=== PATIENT | male | born 1940 | race Caucasian/White ===

== ENCOUNTER 2017-10-18 04:04 | Inpatient (IN) | payer MEDICARE, OTHER ==
[~2017-10-18] VITALS: Ht 165.1 cm; Wt 90.0 kg
[2017-10-18] VITALS (18 sets, daily range): BP systolic 97–125; BP diastolic 35–67
[~2017-10-18 04:04] MED LIST: ALLO100T PO; ATOR20TA PO; CARV-50 PO; CHOL10002 PO; ESCI10TA54 PO; INDSR75C PO; IRBE150T51 PO; METF10002 PO; ONDA8TAB9 PO; PANT-47 PO; POTA10CA44 PO
[2017-10-18] MEDS ORDERED: nitroGLYCERIN-Tridil 50MG/D5W 250 ML IV SCH (04:10)
[2017-10-18 04:29] LABS: BASOPHILS # (AUTO) 0.1 X10'3 (0-0.2); BASOPHILS % (AUTO) 0.6 % (0-1); EOSINOPHILS # (AUTO) 0.4 X10'3 (0-0.9); EOSINOPHILS % (AUTO) 3.3 % (0-6); HEMATOCRIT 38.4 % (42.0-52.0); HEMOGLOBIN 12.8 g/dl (14.0-17.9); LYMPHOCYTES # (AUTO) 1.5 X10'3 (1.1-4.8); LYMPHOCYTES % (AUTO) 11.3 % (21-51); MEAN CORPUSCULAR HEMOGLOBIN 31.7 PG (27.0-31.0); MEAN CORPUSCULAR HGB CONC 33.4 % (33.0-36.5); MEAN CORPUSCULAR VOLUME 94.9 FL (78-98); MEAN PLATELET VOLUME 7.5 FL (7.4-10.4); MONOCYTES % (AUTO) 7.8 % (2-12); NEUTROPHILS # (AUTO) 10.1 X10'3 (1.8-7.7); PLATELET COUNT 253 X10'3 (140-440); RED BLOOD COUNT 4.05 X10'6 (4.70-6.10); RED CELL DISTRIBUTION WIDTH 14.2 % (11.5-14.5); WHITE BLOOD COUNT 13.1 X10'3 (4.5-11.0)
[2017-10-18 04:40] LABS: ABG BASE EXCESS -2.3 mmol/L (-2.0-3.0); ABG HCO3 20.9 mmol/L (22.0-26.0); ABG OXYGEN SATURATION 96.5 % (95-98); ABG PCO2 (T) 32.3 mmHg (35.0-48.0); ABG PH (T) 7.432 (7.350-7.450); ABG PO2 (T) 92.9 mmHg (83-108); FCOHb 0.4 % (0.5-1.5); FO2Hb 96.1 % (94-100); MINUTE VOLUME 25 L/min; PATIENT TEMPERATURE 37.7; RESPIRATORY RATE (OBSERVED) 23 b/min; TOTAL HEMOGLOBIN 12.5 G/dl (14.0-18.0)
[2017-10-18 04:41] LABS: PARTIAL THROMBOPLASTIN TIME 28 SECONDS (22-32); PROTHROMBIN TIME 10.4 SECONDS (9.0-12.0)
[2017-10-18 04:49] LABS: ALANINE AMINOTRANSFERASE 37 U/L (12-78); ALBUMIN 3.5 G/DL (3.4-5.0); ALBUMIN/GLOBULIN RATIO 0.9 (1.1-1.5); ALKALINE PHOSPHATASE 69 IU/L (46-116); ANION GAP 11 (8-16); ASPARTATE AMINO TRANSFERASE 25 U/L (10-37); BILIRUBIN,TOTAL 0.8 MG/DL (0.1-1.0); BLOOD UREA NITROGEN 35 MG/DL (7-18); CALCIUM 8.6 MG/DL (8.5-10.1); CHLORIDE 103 MMOL/L (99-107); CREATININE 1.67 MG/DL (0.60-1.10); GLUCOSE 185 MG/DL (70-104); POTASSIUM 4.2 MMOL/L (3.5-5.1); SODIUM 138 MMOL/L (135-145); TOTAL CARBON DIOXIDE 24.3 MMOL/L (24-32); TOTAL PROTEIN 7.4 G/DL (6.4-8.2); eGFR 40 ML/MIN
[2017-10-18] MEDS ORDERED: furosemide 10 MG/1 ML 10ml inj IV ONE (05:10)
[2017-10-18] MEDS ORDERED: dextrose 50%-water 50ml dispensing syringe IV PRN ×2 (05:50)
[2017-10-18] MEDS ORDERED: ondansetron/PF 4mg/2ml inj IV PRN (05:50)
[2017-10-18] MEDS ORDERED: magnesium hydroxide 30ml (MOM) UD suspension PO PRN (05:50)
[2017-10-18] MEDS ORDERED: acetaminophen 325mg tablet PO PRN ×2 (05:50)
[2017-10-18] MEDS ORDERED: mag hydrox/Alum hydrox/simeth 30ml oral suspension PO PRN (05:50)
[2017-10-18] MEDS ORDERED: glucagon, human recombinant 1mg kit SUBCUT PRN (05:50)
[2017-10-18] MEDS ORDERED: MESSAGE TO PHARMACY PO ONE (05:50)
[2017-10-18] MEDS ORDERED: insulin Lispro (HumaLOG) vial - multi-dose SQ SCH (05:50)
[2017-10-18] MEDS ORDERED: dextrose ORAL solution 15 GM/59 ML bottle PO PRN ×2 (05:50)
[2017-10-18] MEDS ORDERED: LINA5TAB4 PO (05:56)
[2017-10-18] MEDS ORDERED: CLOP75TA35 PO (05:56)
[2017-10-18] MEDS ORDERED: FURO-150 PO (05:56)
[2017-10-18] MEDS ORDERED: AMIO200T57 PO (05:56)
[2017-10-18] MEDS ORDERED: LEVO75TA PO (05:56)
[2017-10-18] MEDS ORDERED: ROSU40TA PO (05:56)
[2017-10-18] MEDS ORDERED: OMEP20CA10 PO (05:56)
[2017-10-18] MEDS ORDERED: INDO50CA PO (06:16)
[2017-10-18] MEDS: atorvastatin 20mg tablet PO SCH (07:44)
[2017-10-18] MEDS: potassium Cl 20 mEq SR tablet PO SCH (07:45)
[2017-10-18] MEDS: levoTHYROXINE 75mcg tablet PO SCH (07:45)
[2017-10-18] MEDS: carVEDilol 12.5mg tablet PO SCH ×2 (07:46→19:38)
[2017-10-18] MEDS: allopurinol 100mg tablet PO SCH (07:46)
[2017-10-18] MEDS: clopidogrel 75mg tablet PO SCH (07:46)
[2017-10-18] MEDS: pantoprazole 40mg Tablet.DR PO SCH (07:47)
[2017-10-18] MEDS: furosemide 10 MG/1 ML 10ml inj IV SCH ×2 (07:48→19:38)
[2017-10-18] MEDS ORDERED: enoxaparin 40mg/0.4ml syringe SUBCUT SCH (08:00)
[2017-10-18] MEDS ORDERED: indomethacin 25mg capsule PO SCH (08:00)
[2017-10-18] MEDS ORDERED: nitroGLYCERIN 0.4mg SUBLingual tab SL ONE (10:00)
[2017-10-18] MEDS: amiodarone 100mg tablet PO SCH (10:06)
[2017-10-18] MEDS ORDERED: acetylcysteine 200 MG/ml 4ml vial PO ONE (16:20)
[2017-10-18] MEDS ORDERED: SODIUM CHLORIDE 0.45% IV SCH (16:25)
[2017-10-18] MEDS ORDERED: SODIUM BICARBONATE IV SCH (16:25)
[2017-10-18] MEDS: DOBUTamine-DoBUTrex 500mg/D5W 250 ML IV SCH ×2 (17:35→20:48)
[2017-10-18] MEDS: sodium bicarbonate (8.4%) inj. 150 MEQ in sodium chloride 0.45% 1,000 ML IV SCH (19:30)
[2017-10-18] MEDS: acetylcysteine 200mg/ml 30ml oral solution (vial) MC SCH (20:00)
[2017-10-18] MEDS: Insulin Detemir pen SQ SCH (21:00)
[2017-10-19] VITALS (18 sets, daily range): BP systolic 95–121; BP diastolic 38–74
[2017-10-19 06:00] LABS: BASOPHILS # (AUTO) 0.1 X10'3 (0-0.2); BASOPHILS % (AUTO) 0.6 % (0-1); EOSINOPHILS # (AUTO) 0.4 X10'3 (0-0.9); EOSINOPHILS % (AUTO) 3.5 % (0-6); HEMATOCRIT 35.6 % (42.0-52.0); HEMOGLOBIN 12.1 g/dl (14.0-17.9); LYMPHOCYTES # (AUTO) 1.3 X10'3 (1.1-4.8); LYMPHOCYTES % (AUTO) 12.6 % (21-51); MEAN CORPUSCULAR VOLUME 94.4 FL (78-98); MEAN PLATELET VOLUME 7.7 FL (7.4-10.4); MONOCYTES # (AUTO) 0.9 X10'3 (0-0.9); MONOCYTES % (AUTO) 8.8 % (2-12); NEUTROPHILS # (AUTO) 7.5 X10'3 (1.8-7.7); NEUTROPHILS % (AUTO) 74.5 % (42-75); PLATELET COUNT 247 X10'3 (140-440); RED BLOOD COUNT 3.77 X10'6 (4.70-6.10); RED CELL DISTRIBUTION WIDTH 14.3 % (11.5-14.5); WHITE BLOOD COUNT 10.1 X10'3 (4.5-11.0)
[2017-10-19 06:11] LABS: ALBUMIN 3.3 G/DL (3.4-5.0); ANION GAP 8 (8-16); BLOOD UREA NITROGEN 35 MG/DL (7-18); BUN/CREATININE RATIO 21.5 (5.4-32.0); CHLORIDE 103 MMOL/L (99-107); CREATININE 1.63 MG/DL (0.60-1.10); GLUCOSE 140 MG/DL (70-104); POTASSIUM 3.7 MMOL/L (3.5-5.1); SODIUM 141 MMOL/L (135-145); TOTAL CARBON DIOXIDE 30.2 MMOL/L (24-32); eGFR 41 ML/MIN
[2017-10-19] MEDS: amiodarone 100mg tablet PO SCH (09:08)
[2017-10-19] MEDS: levoTHYROXINE 75mcg tablet PO SCH (09:08)
[2017-10-19] MEDS: pantoprazole 40mg Tablet.DR PO SCH (09:08)
[2017-10-19] MEDS: allopurinol 100mg tablet PO SCH (09:08)
[2017-10-19] MEDS: carVEDilol 12.5mg tablet PO SCH ×2 (09:08→20:00)
[2017-10-19] MEDS: clopidogrel 75mg tablet PO SCH (09:08)
[2017-10-19] MEDS: furosemide 10 MG/1 ML 10ml inj IV SCH ×2 (09:09→20:00)
[2017-10-19] MEDS: atorvastatin 20mg tablet PO SCH (09:09)
[2017-10-19] MEDS: acetylcysteine 200mg/ml 30ml oral solution (vial) MC SCH ×2 (09:09→20:48)
[2017-10-19] MEDS: potassium Cl 20 mEq SR tablet PO SCH (09:09)
[2017-10-19] MEDS ORDERED: nitroGLYCERIN-Tridil 50MG/D5W 250 ML IV ONE (10:47)
[2017-10-19] MEDS ORDERED: heparin 1,000unit/ml 10ml vial 10 ML ONE (10:48)
[2017-10-19] MEDS ORDERED: iohexol 350MG/ML 100ml bottle IV ONE (10:48)
[2017-10-19] MEDS ORDERED: LIDOcaine 1%/PF (10mg/ml) 5ml vial ONE (10:48)
[2017-10-19] MEDS ORDERED: iohexol 350 MG/ML 50ML vial IV ONE (10:48)
[2017-10-19] MEDS ORDERED: midazolam 2 mg/2 ml injection ONE (10:48)
[2017-10-19] MEDS ORDERED: fentaNYL/PF 50MCG/1 ML 2ML syringe ONE (10:48)
[2017-10-19 13:30] LABS: ISTAT HGB ART 11.9 g/dl (14.0-18.0); ISTAT Hct ART 35 %PCV (42-52); ISTAT O2 SATURATION ARTERIAL 95 % (95-98); ISTAT SOURCE ART
[2017-10-19] MEDS: DOBUTamine-DoBUTrex 500mg/D5W 250 ML IV SCH (15:22)
[2017-10-19] MEDS: sodium bicarbonate (8.4%) inj. 150 MEQ in sodium chloride 0.45% 1,000 ML IV SCH (16:36)
[2017-10-19] MEDS: sacubitril/valsartan 24mg-26mg tablet PO SCH (20:00)
[2017-10-19] MEDS: Insulin Detemir pen SQ SCH (20:49)
[2017-10-20] VITALS (15 sets, daily range): BP systolic 83–134; BP diastolic 36–65
[2017-10-20 06:07] LABS: BASOPHILS % (AUTO) 0.2 % (0-1); EOSINOPHILS # (AUTO) 0.2 X10'3 (0-0.9); EOSINOPHILS % (AUTO) 2.4 % (0-6); HEMATOCRIT 34.6 % (42.0-52.0); HEMOGLOBIN 11.8 g/dl (14.0-17.9); LYMPHOCYTES % (AUTO) 10.5 % (21-51); MEAN CORPUSCULAR VOLUME 94.1 FL (78-98); MEAN PLATELET VOLUME 7.6 FL (7.4-10.4); MONOCYTES # (AUTO) 0.8 X10'3 (0-0.9); MONOCYTES % (AUTO) 8.8 % (2-12); NEUTROPHILS # (AUTO) 7.4 X10'3 (1.8-7.7); NEUTROPHILS % (AUTO) 78.1 % (42-75); PLATELET COUNT 238 X10'3 (140-440); RED BLOOD COUNT 3.68 X10'6 (4.70-6.10); RED CELL DISTRIBUTION WIDTH 14.4 % (11.5-14.5); WHITE BLOOD COUNT 9.5 X10'3 (4.5-11.0)
[2017-10-20 06:29] LABS: ALBUMIN 3.1 G/DL (3.4-5.0); ANION GAP 9 (8-16); BLOOD UREA NITROGEN 25 MG/DL (7-18); BUN/CREATININE RATIO 17.1 (5.4-32.0); CALCIUM 8.3 MG/DL (8.5-10.1); CHLORIDE 102 MMOL/L (99-107); CREATININE 1.46 MG/DL (0.60-1.10); GLUCOSE 125 MG/DL (70-104); POTASSIUM 3.2 MMOL/L (3.5-5.1); SODIUM 139 MMOL/L (135-145); TOTAL CARBON DIOXIDE 28.5 MMOL/L (24-32); eGFR 47 ML/MIN
[2017-10-20] MEDS: pantoprazole 40mg Tablet.DR PO SCH (07:14)
[2017-10-20] MEDS: allopurinol 100mg tablet PO SCH (07:15)
[2017-10-20] MEDS: clopidogrel 75mg tablet PO SCH (07:16)
[2017-10-20] MEDS: potassium Cl 20 mEq SR tablet PO SCH (07:16)
[2017-10-20] MEDS: levoTHYROXINE 75mcg tablet PO SCH (07:16)
[2017-10-20] MEDS: sacubitril/valsartan 24mg-26mg tablet PO SCH ×2 (07:17→20:57)
[2017-10-20] MEDS: atorvastatin 20mg tablet PO SCH (07:17)
[2017-10-20] MEDS: furosemide 10 MG/1 ML 10ml inj IV SCH ×2 (07:20→20:57)
[2017-10-20] MEDS: amiodarone 100mg tablet PO SCH (07:38)
[2017-10-20] MEDS: carVEDilol 12.5mg tablet PO SCH ×2 (07:38→22:15)
[2017-10-20] MEDS: acetylcysteine 200mg/ml 30ml oral solution (vial) MC SCH ×2 (10:21→20:57)
[2017-10-20] MEDS: DOBUTamine-DoBUTrex 500mg/D5W 250 ML IV SCH (19:07)
[2017-10-20] MEDS: sodium bicarbonate (8.4%) inj. 150 MEQ in sodium chloride 0.45% 1,000 ML IV SCH (19:09)
[2017-10-20] MEDS: Insulin Detemir pen SQ SCH (21:00)
[2017-10-20] MEDS ORDERED: potassium Cl 40MEQ/NS 500ml 500 ML IV PRN ×2 (22:25)
[2017-10-20] MEDS ORDERED: potassium Cl 20 mEq SR tablet PO PRN ×2 (22:25)
[2017-10-21] VITALS: BP 102/48
[2017-10-21 02:00] VITALS: BP_SYST 103; BP_SYST 109; BP_DIAS 41; BP_DIAS 42
[2017-10-21 04:00] VITALS: BP 120/49
[2017-10-21 05:46] LABS: ISTAT Hct MIX 31 %PCV (42-52); ISTAT O2 SATURATION MIX VENOUS 62 % (60-80); ISTAT SOURCE MIX
[2017-10-21 05:59] LABS: BASOPHILS % (AUTO) 0.3 % (0-1); EOSINOPHILS # (AUTO) 0.3 X10'3 (0-0.9); EOSINOPHILS % (AUTO) 2.9 % (0-6); HEMATOCRIT 35.9 % (42.0-52.0); HEMOGLOBIN 12.1 g/dl (14.0-17.9); LYMPHOCYTES # (AUTO) 1.3 X10'3 (1.1-4.8); LYMPHOCYTES % (AUTO) 12.1 % (21-51); MEAN CORPUSCULAR HEMOGLOBIN 31.8 PG (27.0-31.0); MEAN CORPUSCULAR HGB CONC 33.8 % (33.0-36.5); MEAN CORPUSCULAR VOLUME 94.1 FL (78-98); MEAN PLATELET VOLUME 7.5 FL (7.4-10.4); MONOCYTES # (AUTO) 1.2 X10'3 (0-0.9); NEUTROPHILS # (AUTO) 7.9 X10'3 (1.8-7.7); NEUTROPHILS % (AUTO) 73.7 % (42-75); PLATELET COUNT 225 X10'3 (140-440); RED BLOOD COUNT 3.81 X10'6 (4.70-6.10); RED CELL DISTRIBUTION WIDTH 14.5 % (11.5-14.5); WHITE BLOOD COUNT 10.7 X10'3 (4.5-11.0)
[2017-10-21 06:45] LABS: ALBUMIN 2.8 G/DL (3.4-5.0); ANION GAP 8 (8-16); BLOOD UREA NITROGEN 23 MG/DL (7-18); BUN/CREATININE RATIO 17.3 (5.4-32.0); CALCIUM 8.3 MG/DL (8.5-10.1); CHLORIDE 101 MMOL/L (99-107); CREATININE 1.33 MG/DL (0.60-1.10); GLUCOSE 128 MG/DL (70-104); POTASSIUM 3.3 MMOL/L (3.5-5.1); SODIUM 137 MMOL/L (135-145); TOTAL CARBON DIOXIDE 28.5 MMOL/L (24-32); eGFR 52 ML/MIN
[2017-10-21 07:00] VITALS: BP 112/47
[2017-10-21] MEDS: atorvastatin 20mg tablet PO SCH (07:17)
[2017-10-21] MEDS: levoTHYROXINE 75mcg tablet PO SCH (07:18)
[2017-10-21] MEDS: clopidogrel 75mg tablet PO SCH (07:18)
[2017-10-21] MEDS: pantoprazole 40mg Tablet.DR PO SCH (07:18)
[2017-10-21] MEDS: sacubitril/valsartan 24mg-26mg tablet PO SCH (07:19)
[2017-10-21] MEDS: amiodarone 100mg tablet PO SCH (07:19)
[2017-10-21] MEDS: potassium Cl 20 mEq SR tablet PO SCH (07:19)
[2017-10-21] MEDS: allopurinol 100mg tablet PO SCH (07:20)
[2017-10-21] MEDS: acetylcysteine 200mg/ml 30ml oral solution (vial) MC SCH (07:20)
[2017-10-21] MEDS: furosemide 10 MG/1 ML 10ml inj IV SCH (07:20)
[2017-10-21 11:00] VITALS: BP 106/66
[2017-10-21] MEDS ORDERED: FURO-150 PO (11:52)
[2017-10-21] MEDS ORDERED: SPIR25TA3 PO (11:52)
[2017-10-21] MEDS ORDERED: SACU1TAB PO (11:52)
[2017-10-21] MEDS ORDERED: AMOX-580 PO (11:52)
[2017-10-21 15:00] VITALS: BP 111/51
[2017-10-22] MEDS ORDERED: spironolactone 25 MG tablet PO SCH (08:30)
== END 2017-10-21 16:20 | disposition home or self-care (01) | DRG 286 ==
LOC: ER 04:04 → ED HOLD 05:48 → PCU 3S 07:00
PROVIDERS: ADMIT Internal Medicine; ATTEND Family Medicine
PROC: 5A09357 Assistance with Respiratory Ventilation, Less than 24 Consecutive Hours, Continuous Positive Airway Pressure (ICD-10-PCS; 2017-10-18)
PROC: 4A023N8 Measurement of Cardiac Sampling and Pressure, Bilateral, Percutaneous Approach (ICD-10-PCS; principal; 2017-10-19)
PROC: B2111ZZ Fluoroscopy of Multiple Coronary Arteries using Low Osmolar Contrast (ICD-10-PCS; 2017-10-19)
PROC: B2151ZZ Fluoroscopy of Left Heart using Low Osmolar Contrast (ICD-10-PCS; 2017-10-19)
DX: I13.0 Hypertensive heart and chronic kidney disease with heart failure and stage 1 through stage 4 chronic kidney disease, or unspecified chronic kidney disease (principal); I50.23 Acute on chronic systolic (congestive) heart failure; J96.01 Acute respiratory failure with hypoxia; J18.9 Pneumonia, unspecified organism; N17.9 Acute kidney failure, unspecified; I24.9 Acute ischemic heart disease, unspecified; I42.0 Dilated cardiomyopathy; E11.22 Type 2 diabetes mellitus with diabetic chronic kidney disease; N18.3 Chronic kidney disease, stage 3 (moderate); I25.10 Atherosclerotic heart disease of native coronary artery without angina pectoris; M19.90 Unspecified osteoarthritis, unspecified site; E66.9 Obesity, unspecified; M10.9 Gout, unspecified; I48.0 Paroxysmal atrial fibrillation; E78.5 Hyperlipidemia, unspecified; I25.2 Old myocardial infarction; Z95.5 Presence of coronary angioplasty implant and graft; Z79.84 Long term (current) use of oral hypoglycemic drugs; Z79.899 Other long term (current) drug therapy; Z86.74 Personal history of sudden cardiac arrest; Z87.891 Personal history of nicotine dependence; Z82.49 Family history of ischemic heart disease and other diseases of the circulatory system; Z82.61 Family history of arthritis; Z84.89 Family history of other specified conditions; Z68.33 Body mass index [BMI] 33.0-33.9, adult
CPT/HCPCS: 36415; 36600; 71045; 80048; 80053; 82803; 82948; 83735; 83880; 84484; 85014; 85018; 85025; 85610; 85730; 87070; 87077; 87186; 93005; 93460; 94660; 94760; 96365; 96375; 99152; 99153; 99285; A4620; A6257; A6258; C1760; C1769; C1894; J1250; J1644; J1650; J1940; J2001; J2250; J3010; J3490; J7030; Q9967

== ENCOUNTER 2018-05-24 01:32 | Inpatient (IN) | payer MEDICARE, OTHER ==
[~2018-05-24] VITALS: Ht 165.1 cm; Wt 90.0 kg
[~2018-05-24 01:32] MED LIST changes: +AMIO200T40 PO; -ATOR20TA PO; +CLOP75TA35 PO; -ESCI10TA54 PO; -INDSR75C PO; -IRBE150T51 PO; +LEVO75TA PO; +LINA5TAB4 PO; -METF10002 PO; +OMEP20CA10 PO; -ONDA8TAB9 PO; -PANT-47 PO; +ROSU40TA PO; +SACU1TAB PO; +SPIR25TA5 PO
[2018-05-24] MEDS ORDERED: furosemide 10 MG/1 ML 10ml inj IV ONE (01:45)
[2018-05-24 02:08] LABS: PARTIAL THROMBOPLASTIN TIME 27 SECONDS (22-32); PROTHROMBIN TIME 10.3 SECONDS (9.0-12.0)
[2018-05-24 02:14] LABS: ALANINE AMINOTRANSFERASE 23 U/L (12-78); ALBUMIN 3.8 G/DL (3.4-5.0); ALKALINE PHOSPHATASE 76 IU/L (46-116); ANION GAP 9 (8-16); ASPARTATE AMINO TRANSFERASE 29 U/L (10-37); BILIRUBIN,TOTAL 0.9 MG/DL (0.1-1.0); BLOOD UREA NITROGEN 33 MG/DL (7-18); BUN/CREATININE RATIO 21.4 (5.4-32.0); CALCIUM 8.8 MG/DL (8.5-10.1); CHLORIDE 102 MMOL/L (99-107); CREATININE 1.54 MG/DL (0.60-1.10); GLUCOSE 173 MG/DL (70-104); POTASSIUM 4.3 MMOL/L (3.5-5.1); SODIUM 136 MMOL/L (135-145); TOTAL CARBON DIOXIDE 24.8 MMOL/L (24-32); TOTAL PROTEIN 7.7 G/DL (6.4-8.2); eGFR 44 ML/MIN
[2018-05-24 02:16] LABS: BASOPHILS # (AUTO) 0.1 X10'3 (0-0.2); BASOPHILS % (AUTO) 0.5 % (0-1); EOSINOPHILS # (AUTO) 0.3 X10'3 (0-0.9); EOSINOPHILS % (AUTO) 2.5 % (0-6); HEMATOCRIT 40.8 % (42.0-52.0); HEMOGLOBIN 13.8 g/dl (14.0-17.9); LYMPHOCYTES # (AUTO) 2.2 X10'3 (1.1-4.8); LYMPHOCYTES % (AUTO) 16.5 % (21-51); MEAN CORPUSCULAR HEMOGLOBIN 32.1 PG (27.0-31.0); MEAN CORPUSCULAR HGB CONC 33.7 % (33.0-36.5); MEAN CORPUSCULAR VOLUME 95.2 FL (78-98); MEAN PLATELET VOLUME 8.4 FL (7.4-10.4); MONOCYTES % (AUTO) 7.2 % (2-12); NEUTROPHILS # (AUTO) 9.8 X10'3 (1.8-7.7); NEUTROPHILS % (AUTO) 73.3 % (42-75); PLATELET COUNT 221 X10'3 (140-440); RED BLOOD COUNT 4.29 X10'6 (4.70-6.10); RED CELL DISTRIBUTION WIDTH 15.3 % (11.5-14.5); WHITE BLOOD COUNT 13.4 X10'3 (4.5-11.0)
[2018-05-24 02:54] LABS: D-DIMER 0.73 MG/L FEU (0-0.50)
[2018-05-24 04:41] LABS: ABG BASE EXCESS -2.7 mmol/L (-2.0-3.0); ABG HCO3 20.6 mmol/L (22.0-26.0); ABG OXYGEN SATURATION 95.1 % (95-98); ABG PCO2 (T) 31.1 mmHg (35.0-48.0); ABG PH (T) 7.437 (7.350-7.450); ABG PO2 (T) 72.3 mmHg (83-108); ALLEN'S TEST Positive; FCOHb 1.1 % (0.5-1.5); FLOW 2 L/min; FO2Hb 94.1 % (94-100); PATIENT TEMPERATURE 36.5; TOTAL HEMOGLOBIN 13.3 G/dl (14.0-18.0)
[2018-05-24] MEDS ORDERED: ALLOPURINOL 300 MG TABLET (05:12)
[2018-05-24] MEDS ORDERED: ondansetron/PF 4mg/2ml inj IV PRN (05:20)
[2018-05-24] MEDS ORDERED: acetaminophen 325mg tablet PO PRN (05:20)
[2018-05-24] MEDS ORDERED: mag hydrox/Alum hydrox/simeth 30ml oral suspension PO PRN (05:20)
[2018-05-24] MEDS ORDERED: magnesium hydroxide 30ml (MOM) UD suspension PO PRN (05:20)
[2018-05-24] MEDS ORDERED: FUROSEMIDE 20 MG TABLET PO (05:23)
[2018-05-24] MEDS ORDERED: POTASSIUM CL ER 20 MEQ TABLET PO (05:23)
[2018-05-24 05:50] VITALS: BP 111/57
[2018-05-24 06:00] VITALS: BP 106/50
[2018-05-24] MEDS ORDERED: furosemide 10 MG/1 ML 10ml inj IV SCH (08:00)
[2018-05-24] MEDS: carVEDilol 12.5mg tablet PO SCH ×2 (08:00→19:40)
[2018-05-24] MEDS: amiodarone 200mg tablet PO SCH (08:00)
[2018-05-24] MEDS: linagliptin 5mg tablet PO SCH (08:00)
[2018-05-24] MEDS: heparin, porcine 5000 units/ml vial SQ SCH ×2 (09:32→19:39)
[2018-05-24] MEDS: allopurinol 300 MG tablet PO SCH (09:35)
[2018-05-24] MEDS: atorvastatin 20mg tablet PO SCH (09:35)
[2018-05-24] MEDS: clopidogrel 75mg tablet PO SCH (09:35)
[2018-05-24] MEDS: spironolactone 25 MG tablet PO SCH (09:35)
[2018-05-24] MEDS: levoTHYROXINE 75mcg tablet PO SCH (09:35)
[2018-05-24] MEDS: sacubitril/valsartan 24mg-26mg tablet PO SCH ×2 (09:35→19:40)
[2018-05-24] MEDS: vitamin D (cholecalciferol) 1,000 unit tablet PO SCH (09:35)
[2018-05-24] MEDS: pantoprazole 40mg Tablet.DR PO SCH ×2 (09:36→19:39)
[2018-05-24 11:00] VITALS: BP 102/50
[2018-05-24 15:00] VITALS: BP 108/52
[2018-05-24 18:00] VITALS: BP 105/57
[2018-05-24] MEDS: furosemide 10 MG/1 ML 10ml inj IV SCH (19:39)
[2018-05-24 22:00] VITALS: BP 104/50
[2018-05-25 02:00] VITALS: BP 90/44
[2018-05-25 05:26] LABS: BASOPHILS % (AUTO) 0.5 % (0-1); EOSINOPHILS # (AUTO) 0.2 X10'3 (0-0.9); HEMATOCRIT 35.5 % (42.0-52.0); LYMPHOCYTES # (AUTO) 1.7 X10'3 (1.1-4.8); LYMPHOCYTES % (AUTO) 24.9 % (21-51); MEAN CORPUSCULAR HGB CONC 33.7 % (33.0-36.5); MEAN PLATELET VOLUME 8.3 FL (7.4-10.4); MONOCYTES # (AUTO) 0.7 X10'3 (0-0.9); NEUTROPHILS # (AUTO) 4.2 X10'3 (1.8-7.7); NEUTROPHILS % (AUTO) 61.6 % (42-75); PLATELET COUNT 167 X10'3 (140-440); RED BLOOD COUNT 3.74 X10'6 (4.70-6.10); RED CELL DISTRIBUTION WIDTH 15.4 % (11.5-14.5); WHITE BLOOD COUNT 6.9 X10'3 (4.5-11.0)
[2018-05-25 05:55] LABS: ALANINE AMINOTRANSFERASE 16 U/L (12-78); ALBUMIN/GLOBULIN RATIO 0.9 (1.1-1.5); ALKALINE PHOSPHATASE 54 IU/L (46-116); ANION GAP 10 (8-16); ASPARTATE AMINO TRANSFERASE 16 U/L (10-37); BILIRUBIN,TOTAL 1.2 MG/DL (0.1-1.0); BLOOD UREA NITROGEN 33 MG/DL (7-18); BUN/CREATININE RATIO 21.4 (5.4-32.0); CALCIUM 8.4 MG/DL (8.5-10.1); CHLORIDE 102 MMOL/L (99-107); CREATININE 1.54 MG/DL (0.60-1.10); GLUCOSE 124 MG/DL (70-104); POTASSIUM 3.7 MMOL/L (3.5-5.1); SODIUM 136 MMOL/L (135-145); TOTAL CARBON DIOXIDE 24.5 MMOL/L (24-32); TOTAL PROTEIN 6.3 G/DL (6.4-8.2); eGFR 44 ML/MIN
[2018-05-25 06:00] VITALS: BP 104/53
[2018-05-25] MEDS: carVEDilol 12.5mg tablet PO SCH (08:00)
[2018-05-25] MEDS: sacubitril/valsartan 24mg-26mg tablet PO SCH (08:00)
[2018-05-25 09:05] VITALS: BP 114/54
[2018-05-25] MEDS: vitamin D (cholecalciferol) 1,000 unit tablet PO SCH (09:14)
[2018-05-25] MEDS: clopidogrel 75mg tablet PO SCH (09:14)
[2018-05-25] MEDS: spironolactone 25 MG tablet PO SCH (09:14)
[2018-05-25] MEDS: pantoprazole 40mg Tablet.DR PO SCH (09:14)
[2018-05-25] MEDS: allopurinol 300 MG tablet PO SCH (09:14)
[2018-05-25] MEDS: levoTHYROXINE 75mcg tablet PO SCH (09:14)
[2018-05-25] MEDS: atorvastatin 20mg tablet PO SCH (09:14)
[2018-05-25] MEDS: amiodarone 200mg tablet PO SCH (09:14)
[2018-05-25] MEDS: heparin, porcine 5000 units/ml vial SQ SCH (09:15)
[2018-05-25] MEDS: furosemide 10 MG/1 ML 10ml inj IV SCH (09:15)
[2018-05-25] MEDS: linagliptin 5mg tablet PO SCH (09:18)
[2018-05-25] MEDS ORDERED: FURO-149 PO (10:01)
[2018-05-25 11:00] VITALS: BP 98/48
== END 2018-05-25 14:34 | disposition home health service (06) | DRG 291 ==
LOC: ER 01:32 → ED HOLD 05:16 → PCU 3S 05:57
PROVIDERS: ADMIT Internal Medicine; ATTEND Internal Medicine
PROC: 5A09357 Assistance with Respiratory Ventilation, Less than 24 Consecutive Hours, Continuous Positive Airway Pressure (ICD-10-PCS; principal; 2018-05-24)
DX: I13.0 Hypertensive heart and chronic kidney disease with heart failure and stage 1 through stage 4 chronic kidney disease, or unspecified chronic kidney disease (principal); I50.23 Acute on chronic systolic (congestive) heart failure; Z68.33 Body mass index [BMI] 33.0-33.9, adult; E66.9 Obesity, unspecified; E78.5 Hyperlipidemia, unspecified; I25.10 Atherosclerotic heart disease of native coronary artery without angina pectoris; I08.3 Combined rheumatic disorders of mitral, aortic and tricuspid valves; I25.5 Ischemic cardiomyopathy; I42.0 Dilated cardiomyopathy; I48.0 Paroxysmal atrial fibrillation; N18.2 Chronic kidney disease, stage 2 (mild); I25.2 Old myocardial infarction; Z79.899 Other long term (current) drug therapy; Z79.02 Long term (current) use of antithrombotics/antiplatelets; Z95.5 Presence of coronary angioplasty implant and graft; Z87.891 Personal history of nicotine dependence; Z82.49 Family history of ischemic heart disease and other diseases of the circulatory system; Z80.9 Family history of malignant neoplasm, unspecified; Z82.5 Family history of asthma and other chronic lower respiratory diseases; Z82.61 Family history of arthritis
CPT/HCPCS: 36415; 36600; 71045; 80053; 82553; 82803; 83605; 83874; 83880; 84443; 84484; 85018; 85025; 85379; 85610; 85730; 87040; 87070; 93005; 93306; 94660; 94760; 99285; J1644; J1940

== ENCOUNTER 2018-10-22 10:01 | Inpatient (IN) | payer MEDICARE, OTHER ==
[2018-10-21 12:40] LABS: BASOPHILS % (AUTO) 0.4 % (0-1); EOSINOPHILS # (AUTO) 0.1 X10'3 (0-0.9); EOSINOPHILS % (AUTO) 1.7 % (0-6); HEMATOCRIT 34.8 % (42.0-52.0); HEMOGLOBIN 11.3 g/dl (14.0-17.9); LYMPHOCYTES # (AUTO) 1.3 X10'3 (1.1-4.8); MEAN CORPUSCULAR HEMOGLOBIN 31.4 PG (27.0-31.0); MEAN CORPUSCULAR HGB CONC 32.6 % (33.0-36.5); MEAN CORPUSCULAR VOLUME 96.3 FL (78-98); MEAN PLATELET VOLUME 8.3 FL (7.4-10.4); MONOCYTES # (AUTO) 0.8 X10'3 (0-0.9); NEUTROPHILS # (AUTO) 6.3 X10'3 (1.8-7.7); NEUTROPHILS % (AUTO) 73.9 % (42-75); PLATELET COUNT 207 X10'3 (140-440); RED BLOOD COUNT 3.61 X10'6 (4.70-6.10); RED CELL DISTRIBUTION WIDTH 16.4 % (11.5-14.5); WHITE BLOOD COUNT 8.5 X10'3 (4.5-11.0)
[2018-10-21 12:43] LABS: ANION GAP 15 (8-16); BLOOD UREA NITROGEN 67 MG/DL (7-18); BUN/CREATININE RATIO 27.6 (5.4-32.0); CALCIUM 9.2 MG/DL (8.5-10.1); CHLORIDE 99 MMOL/L (99-107); CREATININE 2.43 MG/DL (0.60-1.10); GLUCOSE 180 MG/DL (70-104); POTASSIUM 4.2 MMOL/L (3.5-5.1); SODIUM 133 MMOL/L (135-145); TOTAL CARBON DIOXIDE 18.8 MMOL/L (24-32); eGFR 26 ML/MIN
[2018-10-21 12:51] LABS: PROTHROMBIN TIME 11.5 SECONDS (9.0-12.0)
[2018-10-21 12:52] LABS: INR 1.1 INR; PARTIAL THROMBOPLASTIN TIME 30 SECONDS (22-32)
[~2018-10-22] VITALS: Ht 167.6 cm; Wt 92.2 kg
[2018-10-22] VITALS (24 sets, daily range): BP systolic 83–135; BP diastolic 38–62
[~2018-10-22 10:01] MED LIST changes: +FURO-150 PO; +LEVO50TA PO; -LEVO75TA PO; -POTA10CA44 PO; +POTASSIUM CL ER 20 MEQ TABLET PO
[2018-10-22] MEDS ORDERED: diphenhydrAMINE 25mg capsule PO PRN (11:15)
[2018-10-22] MEDS ORDERED: LORazepam 0.5 MG tablet PO PRN (11:15)
[2018-10-22] MEDS ORDERED: sod bicarbonate 150mEq in D5W 1,150 ML IV ONE (11:15)
[2018-10-22] MEDS ORDERED: acetylcysteine 200 MG/ml 4ml vial PO PRN (11:20)
[2018-10-22] MEDS ORDERED: CHOL100046 PO (12:21)
[2018-10-22] MEDS ORDERED: ROSU40TA PO (12:23)
[2018-10-22] MEDS ORDERED: SACU1TAB PO (12:24)
[2018-10-22] MEDS ORDERED: CLOP75TA15 PO (12:24)
[2018-10-22] MEDS ORDERED: SPIR25TA5 PO (12:26)
[2018-10-22] MEDS ORDERED: heparin 1,000 UNITS/NS 500ml 500 ML ONE ×2 (12:33→12:34)
[2018-10-22] MEDS ORDERED: iohexol 350MG/ML 100ml bottle IV ONE (12:33)
[2018-10-22] MEDS ORDERED: LIDOcaine 1% (10mg/ml)w/preservative injection 20ml MDV ONE (12:33)
[2018-10-22] MEDS ORDERED: iohexol 350 MG/ML 50ML vial IV ONE (12:33)
[2018-10-22] MEDS ORDERED: DOBUTamine-DoBUTrex 500mg/D5W 250 ML IV SCH (13:00)
[2018-10-22] MEDS ORDERED: midazolam 2 mg/2 ml injection ONE (13:29)
[2018-10-22] MEDS ORDERED: fentaNYL/PF 50MCG/1 ML 2ML syringe ONE (13:29)
[2018-10-22] MEDS ORDERED: heparin 1,000unit/ml 10ml vial 10 ML ONE (13:36)
[2018-10-22] MEDS ORDERED: nitroGLYCERIN-Tridil 50MG/D5W 250 ML IV ONE (13:36)
[2018-10-22] MEDS ORDERED: HYDROcodone/acetaminophen 10/325mg tab PO PRN (18:45)
--- NOTE | 2018-10-22 19:10 | NUR ---
Patient arrived from short stay accompanied by LYLE Galeano. Patient alert, oriented, comfortable, pain-free. Cath site soft, non-tender, clean, dry, and intact. Good extremity pulses and cap refill, warm to touch. Patient on dobutamine 5 mcg/kg/min, and bicarb gtt 88.6ml/hr. Will continue to monitor. Patient placed on telemetry, vitals obtained.
[2018-10-22] MEDS: furosemide 20MG tablet PO SCH (19:26)
[2018-10-22] MEDS: pantoprazole 40mg Tablet.DR PO SCH (19:32)
--- NOTE | 2018-10-22 22:15 | NUR ---
Hypotension Patient's blood pressure 83/38, HR 88 and has been staying low since around 2100. Gave 250 ml normal saline bolus. Patient's lungs clear, no edema noted. Will continue to monitor.
--- NOTE | 2018-10-22 23:30 | NUR ---
Blood pressure improved, BP 100/45, HR 90.
[2018-10-23] VITALS (20 sets, daily range): BP systolic 72–115; BP diastolic 31–61
[2018-10-23] MEDS ORDERED: sod bicarbonate 150mEq in D5W 1,150 ML IV SCH (00:50)
[2018-10-23 06:10] LABS: BASOPHILS % (AUTO) 0.4 % (0-1); EOSINOPHILS # (AUTO) 0.2 X10'3 (0-0.9); EOSINOPHILS % (AUTO) 2.8 % (0-6); HEMATOCRIT 27.3 % (42.0-52.0); LYMPHOCYTES # (AUTO) 0.7 X10'3 (1.1-4.8); LYMPHOCYTES % (AUTO) 8.9 % (21-51); MEAN CORPUSCULAR HEMOGLOBIN 31.5 PG (27.0-31.0); MEAN CORPUSCULAR VOLUME 95.2 FL (78-98); MEAN PLATELET VOLUME 7.6 FL (7.4-10.4); MONOCYTES # (AUTO) 0.7 X10'3 (0-0.9); MONOCYTES % (AUTO) 8.8 % (2-12); NEUTROPHILS % (AUTO) 79.1 % (42-75); PLATELET COUNT 175 X10'3 (140-440); RED BLOOD COUNT 2.87 X10'6 (4.70-6.10); WHITE BLOOD COUNT 7.6 X10'3 (4.5-11.0)
--- NOTE | 2018-10-23 06:18 | NUR ---
Patient in room MED 314. I have received report from LYLE CAN, and had the opportunity to ask questions and assume patient care.
--- NOTE | 2018-10-23 06:28 | NUR ---
Problems reprioritized. Patient report given, questions answered & plan of care reviewed with LYLE Gonzalez.
[2018-10-23 06:35] LABS: ALBUMIN 2.9 G/DL (3.4-5.0); ANION GAP 11 (8-16); BLOOD UREA NITROGEN 49 MG/DL (7-18); BUN/CREATININE RATIO 27.4 (5.4-32.0); CALCIUM 8.3 MG/DL (8.5-10.1); CHLORIDE 100 MMOL/L (99-107); CREATININE 1.79 MG/DL (0.60-1.10); GLUCOSE 142 MG/DL (70-104); POTASSIUM 3.5 MMOL/L (3.5-5.1); SODIUM 135 MMOL/L (135-145); eGFR 37 ML/MIN
[2018-10-23 06:37] LABS: CHOL/HDL RATIO 3.4 (0.00-4.99); CHOLESTEROL 92 MG/DL (0-200); HDL CHOLESTEROL 27 MG/DL (35-60); LDL CHOLESTEROL 55 MG/DL (50-100); TRIGLYCERIDES 70 MG/DL (20-135)
--- NOTE | 2018-10-23 07:51 | NUR ---
GERMÁN WONG NP CALLED. NEW ORDERS RECEIVED: DECREASE DOBUTAMINE TO 3MCG/KG/MIN, 1 HOUR LATER TURN DOBUTAMINE GTT OFF; DISCONTINUE BICARB GTT NOW. WILL CONTINUE TO MONITOR.
[2018-10-23] MEDS ORDERED: sacubitril/valsartan 24mg-26mg tablet PO SCH (08:00)
[2018-10-23] MEDS ORDERED: carVEDilol 12.5mg tablet PO SCH (08:00)
[2018-10-23] MEDS: spironolactone 25 MG tablet PO SCH (08:24)
[2018-10-23] MEDS: furosemide 20MG tablet PO SCH ×2 (08:24→20:00)
[2018-10-23] MEDS: atorvastatin 20mg tablet PO SCH (08:24)
[2018-10-23] MEDS: levoTHYROXINE 25mcg tablet PO SCH (08:24)
[2018-10-23] MEDS: vitamin D (cholecalciferol) 1,000 unit tablet PO SCH (08:24)
[2018-10-23] MEDS: allopurinol 300 MG tablet PO SCH (08:24)
[2018-10-23] MEDS: pantoprazole 40mg Tablet.DR PO SCH ×2 (08:24→20:05)
[2018-10-23] MEDS: clopidogrel 75mg tablet PO SCH (08:24)
[2018-10-23] MEDS: amiodarone 200mg tablet PO SCH (08:25)
[2018-10-23] MEDS: linagliptin 5mg tablet PO SCH (08:25)
--- NOTE | 2018-10-23 11:00 | NUR ---
SPOKE WITH DR. JENNINGS ABOUT LOW BP 80S/40S MD ADVISED THAT UPON DISCHARGE HOME, PATIENT SHOULD STAGGER MEDICATIONS WHICH AFFECT BLOOD PRESSURE- LASIX, SPIRINOLACTONE, COREG, AND ENTRESTO, BY 2 HOURS APART AT LEAST. PATIENT EDUCATED ON THESE MEDICATIONS WHICH AFFECT BLOOD PRESSURE, AND VERBALLY ADVISED TO STAGGER THESE MEDICATIONS WHILE AT HOME, AND CHECK BLOOD PRESSURE EVERY DAY PRIOR TO TAKING MEDICATIONS. PATIENT VERBALIZED UNDERSTANDING.
[2018-10-23] MEDS ORDERED: DOBUTamine-DoBUTrex 500mg/D5W 250 ML IV SCH (13:00)
--- NOTE | 2018-10-23 13:45 | NUR ---
Patient getting ready to go home, BP still low Called Dr. Hong regarding low BP in the 70s/40s and patient now complaining of dizziness. no other symptoms noted. Dr. Hong says to bolus patient with 250cc of NS, monitor for a few hours, and if stable he may go home later this afternoon. Informed charge nurse Adrienne and patient of new plan. will initiate bolus and continue to monitor patient.
[2018-10-23] MEDS ORDERED: normal saline 1000ml 1,000 ML IV ONE (14:00)
--- NOTE | 2018-10-23 17:41 | NUR ---
CALLED DR. JENNINGS'S ANSWERING SERVICE FOR LOW BP 82/38. WILL AWAIT CALL BACK.
--- NOTE | 2018-10-23 18:15 | NUR ---
Problems reprioritized. Patient report given, questions answered & plan of care reviewed with LYLE TRONCOSO.
--- NOTE | 2018-10-23 18:55 | NUR ---
CALLED DR. JENNINGS'S ANSWERING SERVICE FOR LOW BP INFORMED ANSWERING SERVICE PERSONNEL THAT WE HAVE NOT RECEIVED A CALL BACK FROM DR. JENNINGS. PATIENT STILL HAS LOW BP. NO OTHER SYMPTOMS REPORTED BY PATIENT. SAYS SHE WILL PAGE HIM AGAIN.
--- NOTE | 2018-10-23 19:10 | NUR ---
DR. ELDRIDGE AT BEDSIDE TO ASSESS PATIENT, ACKNOWLEDGING BLOOD PRESSURE OF 84/43 CURRENTLY ( LOW 70S/30S). PATIENT ASYMPTOMATIC. DR. ELDRIDGE SAYS IF PATIENT BECOMES SYMPTOMATIC, RN MAY START DOPAMINE @5MCG/PROTOCOL. WILL CONTINUE TO MONITOR.
[2018-10-23] MEDS ORDERED: carvedilol 6.25mg tablet PO SCH (20:00)
[2018-10-23] MEDS ORDERED: DOPamine 400mg/D5W 250ml 250 ML IV SCH ×2 (20:55→21:17)
[2018-10-24] VITALS (8 sets, daily range): BP systolic 69–102; BP diastolic 36–53
[2018-10-24] MEDS ORDERED: DOBUTamine-DoBUTrex 500mg/D5W 250 ML IV SCH (01:30)
[2018-10-24] MEDS ORDERED: morphine 4 MG/ML inj SYRINge IV PRN (01:30)
[2018-10-24] MEDS ORDERED: furosemide 20 MG/2 ML vial IV ONE (01:45)
[2018-10-24 06:42] LABS: ANION GAP 13 (8-16); BLOOD UREA NITROGEN 47 MG/DL (7-18); BUN/CREATININE RATIO 22.5 (5.4-32.0); CALCIUM 8.2 MG/DL (8.5-10.1); CHLORIDE 99 MMOL/L (99-107); CREATININE 2.09 MG/DL (0.60-1.10); GLUCOSE 117 MG/DL (70-104); POTASSIUM 4.1 MMOL/L (3.5-5.1); SODIUM 135 MMOL/L (135-145); TOTAL CARBON DIOXIDE 22.8 MMOL/L (24-32); eGFR 31 ML/MIN
[2018-10-24] MEDS: furosemide 20MG tablet PO SCH ×2 (07:44→20:00)
[2018-10-24] MEDS: linagliptin 5mg tablet PO SCH (08:29)
[2018-10-24] MEDS: vitamin D (cholecalciferol) 1,000 unit tablet PO SCH (08:30)
[2018-10-24] MEDS: sacubitril/valsartan 24mg-26mg tablet PO SCH ×2 (08:30→20:00)
[2018-10-24] MEDS: atorvastatin 20mg tablet PO SCH (08:31)
[2018-10-24] MEDS: amiodarone 200mg tablet PO SCH (08:31)
[2018-10-24] MEDS: levoTHYROXINE 25mcg tablet PO SCH (08:31)
[2018-10-24] MEDS: clopidogrel 75mg tablet PO SCH (08:31)
[2018-10-24] MEDS: allopurinol 300 MG tablet PO SCH (08:31)
[2018-10-24] MEDS: pantoprazole 40mg Tablet.DR PO SCH ×2 (08:31→20:56)
[2018-10-24] MEDS: spironolactone 25 MG tablet PO SCH (12:06)
[2018-10-24] MEDS: carVEDilol 3.125mg tablet PO SCH ×2 (15:05→20:00)
--- NOTE | 2018-10-24 15:23 | NUR ---
Dobutamine gtt changed to 5mcg per minute
--- NOTE | 2018-10-24 18:05 | NUR ---
Patient in room MED 314. I have received report from Art and had the opportunity to ask questions and assume patient care.
[2018-10-25] VITALS (12 sets, daily range): BP systolic 76–107; BP diastolic 32–59
[2018-10-25] MEDS: DOBUTamine-DoBUTrex 500mg/D5W 250 ML IV SCH ×3 (01:08→23:41)
--- NOTE | 2018-10-25 06:30 | NUR ---
Patient in room MED 314. I have received report from Ishaan ALVARENGA and had the opportunity to ask questions and assume patient care. Patient sitting at the side of the bed. No needs at this time.
--- NOTE | 2018-10-25 07:30 | NUR ---
Patient's BP 112/60. Will give lasix and hold other BP meds at this time. Will re-check BP in 1 hour.
--- NOTE | 2018-10-25 07:38 | NUR ---
DR JENNINGS AT BEDSIDE. NEW ORDERS RECEIVED: CHEM 7 NOW, CMP AND PBNP IN AM.
[2018-10-25] MEDS: furosemide 20MG tablet PO SCH ×2 (07:52→20:38)
[2018-10-25] MEDS: linagliptin 5mg tablet PO SCH (07:53)
[2018-10-25] MEDS: levoTHYROXINE 25mcg tablet PO SCH (07:53)
[2018-10-25] MEDS: vitamin D (cholecalciferol) 1,000 unit tablet PO SCH (07:53)
[2018-10-25] MEDS: amiodarone 200mg tablet PO SCH (07:53)
[2018-10-25] MEDS: pantoprazole 40mg Tablet.DR PO SCH ×2 (07:53→20:38)
[2018-10-25] MEDS: allopurinol 300 MG tablet PO SCH (07:53)
[2018-10-25] MEDS: atorvastatin 20mg tablet PO SCH (07:53)
[2018-10-25] MEDS: clopidogrel 75mg tablet PO SCH (07:54)
[2018-10-25] MEDS: spironolactone 25 MG tablet PO SCH (08:00)
[2018-10-25] MEDS: sacubitril/valsartan 24mg-26mg tablet PO SCH ×2 (08:00→20:00)
[2018-10-25] MEDS: carVEDilol 3.125mg tablet PO SCH ×2 (08:00→20:00)
[2018-10-25 08:50] LABS: ALANINE AMINOTRANSFERASE 21 U/L (12-78); ALBUMIN 3.2 G/DL (3.4-5.0); ALBUMIN/GLOBULIN RATIO 0.9 (1.1-1.5); ALKALINE PHOSPHATASE 56 IU/L (46-116); ANION GAP 13 (8-16); ASPARTATE AMINO TRANSFERASE 19 U/L (10-37); BLOOD UREA NITROGEN 43 MG/DL (7-18); BUN/CREATININE RATIO 20.8 (5.4-32.0); CALCIUM 8.4 MG/DL (8.5-10.1); CHLORIDE 98 MMOL/L (99-107); CREATININE 2.07 MG/DL (0.60-1.10); GLUCOSE 126 MG/DL (70-104); SODIUM 133 MMOL/L (135-145); TOTAL CARBON DIOXIDE 22.3 MMOL/L (24-32); TOTAL PROTEIN 6.7 G/DL (6.4-8.2); eGFR 31 ML/MIN
--- NOTE | 2018-10-25 09:00 | NUR ---
Re-checked BP and adjusted the cuff. BP 81/32 and then 76/38. Will hold BP meds at this time.
[2018-10-25] MEDS: ferrous sulfate 325mg tablet PO SCH ×3 (09:57→17:16)
--- NOTE | 2018-10-25 14:00 | NUR ---
Patient's IV leaking. IV had come out. D/C'd and dressed with 2x2's and tape. Attempted PIV x2 unsuccessfully.
--- NOTE | 2018-10-25 16:00 | NUR ---
Jazmyn ALVARENGA able to get PIV in right upper arm 20g using ultrasound. Re-started dobutamine
--- NOTE | 2018-10-25 18:24 | NUR ---
Problems reprioritized. Patient report given, questions answered & plan of care reviewed with Ishaan RN.
[2018-10-26] VITALS (18 sets, daily range): BP systolic 82–111; BP diastolic 40–68
[2018-10-26] MEDS: furosemide 20MG tablet PO SCH (06:38)
[2018-10-26 06:41] LABS: ALANINE AMINOTRANSFERASE 21 U/L (12-78); ALBUMIN 2.9 G/DL (3.4-5.0); ALBUMIN/GLOBULIN RATIO 0.9 (1.1-1.5); ALKALINE PHOSPHATASE 53 IU/L (46-116); ANION GAP 12 (8-16); ASPARTATE AMINO TRANSFERASE 19 U/L (10-37); BILIRUBIN,TOTAL 0.8 MG/DL (0.1-1.0); BLOOD UREA NITROGEN 42 MG/DL (7-18); BUN/CREATININE RATIO 20.3 (5.4-32.0); CALCIUM 8.3 MG/DL (8.5-10.1); CHLORIDE 101 MMOL/L (99-107); CREATININE 2.07 MG/DL (0.60-1.10); GLUCOSE 95 MG/DL (70-104); POTASSIUM 3.7 MMOL/L (3.5-5.1); SODIUM 135 MMOL/L (135-145); TOTAL CARBON DIOXIDE 22.4 MMOL/L (24-32); TOTAL PROTEIN 6.2 G/DL (6.4-8.2); eGFR 31 ML/MIN
[2018-10-26] MEDS: atorvastatin 20mg tablet PO SCH (08:00)
[2018-10-26] MEDS: carVEDilol 3.125mg tablet PO SCH (08:00)
[2018-10-26] MEDS: spironolactone 25 MG tablet PO SCH (08:00)
[2018-10-26] MEDS: sacubitril/valsartan 24mg-26mg tablet PO SCH ×2 (08:00→08:04)
[2018-10-26] MEDS: vitamin D (cholecalciferol) 1,000 unit tablet PO SCH (08:01)
[2018-10-26] MEDS: allopurinol 300 MG tablet PO SCH (08:01)
[2018-10-26] MEDS: linagliptin 5mg tablet PO SCH (08:01)
[2018-10-26] MEDS: pantoprazole 40mg Tablet.DR PO SCH (08:02)
[2018-10-26] MEDS: levoTHYROXINE 25mcg tablet PO SCH (08:02)
[2018-10-26] MEDS: clopidogrel 75mg tablet PO SCH (08:02)
[2018-10-26] MEDS: amiodarone 200mg tablet PO SCH (08:02)
[2018-10-26] MEDS: ferrous sulfate 325mg tablet PO SCH ×3 (08:02→17:16)
[2018-10-26] MEDS ORDERED: DOBUTamine-DoBUTrex 500mg/D5W 250 ML IV SCH (14:10)
--- NOTE | 2018-10-26 14:10 | NUR ---
DECREASED DOBUTAMINE DRIP TO 2MCG/KG/MIN PER DR. JENNINGS'S TELEPHONE ORDER.
--- NOTE | 2018-10-26 15:10 | NUR ---
DECREASED DOBUTAMINE DRIP TO 1MCG/KG/MIN PER DR. JENNINGS'S TELEPHONE ORDER. BP 92/50.
--- NOTE | 2018-10-26 16:10 | NUR ---
STOPPED DOBUTAMINE DRIP PER DR. JENNINGS'S VERBAL ORDER.
[2018-10-26] MEDS ORDERED: COR3.125T PO (17:58)
[2018-10-26] MEDS ORDERED: SACU1TAB PO (17:58)
--- NOTE | 2018-10-26 18:20 | NUR ---
Problems reprioritized. Patient report given, questions answered & plan of care reviewed with LYLE ROBLES.
--- NOTE | 2018-10-26 18:56 | NUR ---
DISCHARGE PACKET PRINTED AND PROVIDED TO TRAVIS ALVARENGA. DISCHARGE INSTRUCTION PACKET INCLUDES PRESCRIPTION SHEET PATIENT WILL TAKE TO PREFERRED PHARMACY AT HIS CONVENIENCE. ALSO INCLUDES LAB ORDERS WHICH PATIENT IS TO HAVE DRAWN IN 1 WEEK WRITTEN ON ORDER. PATENT AWARE HE IS TO STAGGER BLOOD PRESSURE MEDICATIONS AT HOME AND TAKE BLOOD PRESSURE DAILY. DENIES ANY QUESTIONS OR CONCERNS. LYLE ROBLES AND TOMMY CHARGE NURSE MADE AWARE OF DISCHARGE PLAN AND WILL FINISH DISCHARGE. PT BP 88/58, PER DR. JENNINGS, PATIENT IS OKAY FOR DISCHARGE LONG PATIENT SBP IS >85 AND PATIENT IS ASYMPTOMATIC.
[2018-10-27] MEDS ORDERED: DOBUTamine-DoBUTrex 500mg/D5W 250 ML IV SCH ×2 (01:30→14:10)
== END 2018-10-26 19:45 | disposition home or self-care (01) | DRG 286 ==
LOC: SSTAY O 10:01 → MED 3N 14:29 → SSTAY O 19:49
PROVIDERS: ADMIT Internal Medicine Cardiovascular Disease; ATTEND Internal Medicine Cardiovascular Disease
PROC: 4A023N7 Measurement of Cardiac Sampling and Pressure, Left Heart, Percutaneous Approach (ICD-10-PCS; principal; 2018-10-22)
PROC: B2111ZZ Fluoroscopy of Multiple Coronary Arteries using Low Osmolar Contrast (ICD-10-PCS; 2018-10-22)
PROC: B2151ZZ Fluoroscopy of Left Heart using Low Osmolar Contrast (ICD-10-PCS; 2018-10-22)
DX: I13.0 Hypertensive heart and chronic kidney disease with heart failure and stage 1 through stage 4 chronic kidney disease, or unspecified chronic kidney disease (principal); I50.23 Acute on chronic systolic (congestive) heart failure; E11.21 Type 2 diabetes mellitus with diabetic nephropathy; N18.9 Chronic kidney disease, unspecified; I25.10 Atherosclerotic heart disease of native coronary artery without angina pectoris; E78.5 Hyperlipidemia, unspecified; E11.22 Type 2 diabetes mellitus with diabetic chronic kidney disease; I25.2 Old myocardial infarction; I42.0 Dilated cardiomyopathy; Z79.84 Long term (current) use of oral hypoglycemic drugs; Z79.890 Hormone replacement therapy; Z95.5 Presence of coronary angioplasty implant and graft
CPT/HCPCS: 36415; 71045; 80048; 80053; 80061; 82948; 83880; 85025; 85610; 85730; 87070; 93005; 93454; 97110; 97116; 97161; 97530; 99152; 99153; A4620; A6257; C1760; C1769; G0378; J1250; J1265; J1644; J1940; J2001; J2250; J2270; J3010; J3490; J7030; Q0163; Q9967

== ENCOUNTER 2018-12-08 13:11 | Inpatient (IN) | payer MEDICARE, OTHER | END 2018-12-14 16:29 | disposition E | LOC: CICU 2S 12-11 09:38 → ER 13:11 → PCU 3S 12-09 20:40 → ED HOLD 15:50 → SUR 3N 17:23 | PROC: 5A1945Z Respiratory Ventilation, 24-96 Consecutive Hours (ICD-10-PCS; principal; ~2018-12-08) | DX: N17.9 Acute kidney failure, unspecified (principal); I50.23 Acute on chronic systolic (congestive) heart failure; I13.0 Hypertensive heart and chronic kidney disease with heart failure and stage 1 through stage 4 chronic kidney disease, or unspecified chronic kidney disease; I42.9 Cardiomyopathy, unspecified; N18.3 Chronic kidney disease, stage 3 (moderate); E87.6 Hypokalemia; R62.7 Adult failure to thrive; K02.9 Dental caries, unspecified; R63.0 Anorexia; R53.1 Weakness; E11.22 Type 2 diabetes mellitus with diabetic chronic kidney disease; E78.5 Hyperlipidemia, unspecified; F32.9 Major depressive disorder, single episode, unspecified ==